=== PATIENT | male | born 2000 | race Caucasian/White ===

== ENCOUNTER 2022-03-04 22:19 | Emergency (ER) | payer OTHER ==
[2022-03-04 22:44] VITALS: BP 140/78; PULSE 82; RESP 18; TEMP 97.9; BMI 23.7
== END 2022-03-04 23:40 | disposition home or self-care (01) ==
LOC: JER 22:19
DX: U07.1 COVID-19 (principal)
CPT/HCPCS: 99282-25

== ENCOUNTER 2024-10-19 02:22 | Emergency (ER) | payer OTHER ==
[2024-10-19 02:30] VITALS: BP 142/85; PULSE 100; RESP 18; TEMP 99.9
[2024-10-19 02:31] VITALS: BMI 26.4
[2024-10-19] MEDS: KETOROLAC TROMETHAMINE 15 MG/ML VIAL IM ONE (03:21)
[2024-10-19] MEDS: ACETAMINOPHEN 325 MG TABLET (FP) PO ONE (03:21)
[2024-10-19] MEDS ORDERED: KETOROLAC TROMETHAMINE 15 MG/ML VIAL ONE (03:23)
[2024-10-19] MEDS: DEXAMETHASONE SOD PHOSPHATE 10 MG/1 ML VIAL IM ONE (04:23)
[2024-10-19] MEDS: CLINDAMYCIN PALMITATE HCL ORAL SOLUTION 75 MG/5 ML BOTTLE PO ONE (04:24)
[2024-10-19] MEDS ORDERED: DEXAMETHASONE SOD PHOSPHATE 10 MG/1 ML VIAL ONE (04:29)
[2024-10-19 04:38] LABS: THROAT:GRP A STREP DETECTED (NOTDETECTED)
[2024-10-19 04:59] LABS: HCV DIAGNOSTIC IN-HOUSE W/RFLX NON-REACTIVE (NONREACTIVE); HIV INTERPRETATION NEGATIVE (NEGATIVE)
== END 2024-10-19 05:10 | disposition home or self-care (01) ==
LOC: JER 02:22
PROC: 3E023GC Introduction of Other Therapeutic Substance into Muscle, Percutaneous Approach (ICD-10-PCS; principal; 2024-10-19)
PROC: 3E0233Z Introduction of Anti-inflammatory into Muscle, Percutaneous Approach (ICD-10-PCS; 2024-10-19)
DX: J02.0 Streptococcal pharyngitis (principal); R50.9 Fever, unspecified; R00.0 Tachycardia, unspecified; M54.9 Dorsalgia, unspecified; M25.561 Pain in right knee; M25.562 Pain in left knee
CPT/HCPCS: 36415; 86803; 87389; 87637-QW; 87651; 99284-25; J1100